=== PATIENT | female | born 1990 | race Hispanic/Latino ===

== ENCOUNTER → 2023-10-03 | Outpatient (CLI) | payer OTHER | LOC: M WHC 08:19 | PROVIDERS: ATTEND Nurse Practitioner Family | DX: Z12.31 Encounter for screening mammogram for malignant neoplasm of breast (principal) ==

== ENCOUNTER 2024-03-02 08:33 | Emergency (ER) | payer OTHER ==
[~2024-03-02] VITALS: Ht 157.5 cm; Wt 60.0 kg
[2024-03-02] MEDS ORDERED: RA N1TAB PO (08:56)
[2024-03-02] MEDS ORDERED: ACET-683 PO (08:56)
[2024-03-02] MEDS ORDERED: NORT10CA2 PO (08:56)
[2024-03-02] MEDS ORDERED: VITA25TA3 PO (08:56)
[2024-03-02] MEDS ORDERED: ISOVUE-370 76% 100ML VIAL As Ordered ONE (10:39)
[2024-03-02 10:53] LABS: BASO # 0.1 10^3/uL (0.0-0.2); BASO % 0.5 % (0.0-1.0); EOS # 0.2 10^3/uL (0.0-0.5); EOS % 2.1 % (0.0-3.0); HEMATOCRIT 35.7 % (36.0-47.0); HEMOGLOBIN 11.9 g/dl (12.0-15.5); LYMPH # 2.6 10^3/uL (1.5-5.0); LYMPH % 26.9 % (24.0-44.0); MEAN CORPUSCULAR HEMOGLOBIN 29.5 pg (27.0-33.0); MEAN CORPUSCULAR HGB CONC 33.3 g/dl (32.0-36.5); MEAN CORPUSCULAR VOLUME 88.6 fl (80.0-96.0); MONO # 0.5 10^3/uL (0.0-0.8); MONO % 5.3 % (2.0-8.0); NEUTROPHILS # 6.3 10^3/uL (1.5-8.5); PLATELET COUNT, AUTOMATED 212 10^3/uL (150-450); RED BLOOD COUNT 4.03 10^6/uL (4.00-5.40); WHITE BLOOD COUNT 9.7 10^3/uL (4.0-10.0)
[2024-03-02] MEDS: predniSONE 20 MG TAB PO ONE (12:42)
[2024-03-02] MEDS: AUGMENTIN 875 MG TAB PO ONE (12:42)
[2024-03-02] MEDS ORDERED: PRED10TA2 PO (13:33)
[2024-03-02] MEDS ORDERED: AMOX875T2 PO (13:33)
[2024-03-02 13:44] VITALS: BP 111/68; TEMP 97.3; O2SAT 99
== END 2024-03-02 13:45 | disposition home or self-care (01) ==
LOC: M ED 08:33
DX: K11.5 Sialolithiasis (principal); R51.9 Headache, unspecified; F43.10 Post-traumatic stress disorder, unspecified; F17.200 Nicotine dependence, unspecified, uncomplicated; Z79.2 Long term (current) use of antibiotics; Z79.52 Long term (current) use of systemic steroids; Z79.899 Other long term (current) drug therapy
CPT/HCPCS: 36415; 70491; 80047; 84702; 85025; 87880; 99284; J7512; Q9967

== ENCOUNTER → 2024-03-05 | Outpatient (REF) | payer OTHER ==
[~2024-03-05] MED LIST: ACET-683 PO; AMOX875T2 PO; NORT10CA2 PO; PRED10TA2 PO; RA N1TAB PO; VITA25TA3 PO
== END ==
LOC: M LAB REF 11:34
PROVIDERS: ATTEND Otolaryngology Otolaryngic Allergy
DX: K11.5 Sialolithiasis (principal)

== ENCOUNTER → 2024-10-05 | Outpatient (CLI) | payer OTHER | LOC: M WHC 11:05 | PROVIDERS: ATTEND Nurse Practitioner Family | DX: Z12.31 Encounter for screening mammogram for malignant neoplasm of breast (principal) ==

== ENCOUNTER → 2025-04-01 | Outpatient (CLI) | payer OTHER | LOC: M SLEEP 20:00 | PROVIDERS: ATTEND Nurse Practitioner Family | DX: R06.83 Snoring (principal) ==

== ENCOUNTER → 2025-04-07 | Outpatient (CLI) | payer OTHER ==
[~2025-04-07] MED LIST changes: +PROHANCE 279.3MG/ML 15ML VIAL ONE
== END ==
LOC: M PLAIMG 15:18
PROVIDERS: ATTEND Registered Nurse
DX: R92.30 Dense breasts, unspecified (principal); Z80.3 Family history of malignant neoplasm of breast; R92.8 Other abnormal and inconclusive findings on diagnostic imaging of breast
CPT/HCPCS: A9576; C8908

== ENCOUNTER → 2025-05-04 | Outpatient (CLI) | payer OTHER ==
[~2025-05-04] MED LIST changes: -PROHANCE 279.3MG/ML 15ML VIAL ONE
== END ==
LOC: M WHC 08:02
PROVIDERS: ATTEND Registered Nurse
DX: R92.322 Mammographic fibroglandular density, left breast (principal); N60.12 Diffuse cystic mastopathy of left breast